=== PATIENT | female | born 1950 | race Caucasian/White ===

== ENCOUNTER → 2023-12-24 12:42 | Outpatient (REF) | payer MEDICARE, OTHER, SELFPAY | LOC: PAVMRI 12:42 | PROVIDERS: ATTENDING PHYSICIAN Otolaryngology; FAMILY PHYSICIAN Family Medicine | DX: H90.A22 Sensorineural hearing loss, unilateral, left ear, with restricted hearing on the contralateral side (principal) | CPT/HCPCS: 70553; A9575 ==

== ENCOUNTER → 2024-05-22 07:52 | Outpatient (REF) | payer MEDICARE, OTHER, SELFPAY | LOC: HWWDC 07:52 | PROVIDERS: ATTENDING PHYSICIAN Obstetrics & Gynecology; FAMILY PHYSICIAN Nurse Practitioner Family | DX: Z12.31 Encounter for screening mammogram for malignant neoplasm of breast (principal) | CPT/HCPCS: 77063; 77067 ==

== ENCOUNTER 2024-12-16 13:00 | Emergency (ER) | payer MEDICARE, OTHER, SELFPAY ==
[2024-12-16 13:19] VITALS: BP 151/74
--- NOTE | 2024-12-16 15:24 | ED.GENMED ---
History of Present Illness
General
Chief Complaint: Fall
Source: patient
Exam Limitations: none
Time Seen by Provider: 12/16/24 14:48
Nursing documentation reviewed up to this point in time: agreed with
History of Present Illness
History of Present Illness:
74 yo female, no past medical history was sent here by her certified dialysis technician. She is to have cataract surgery on January 26 in the right eye, she fell 7 days ago at her home. She was standing on the curb outside her home looking up 3 stories
talking to a neighbor when she lost her balance and fell injuring the right orbit. Her sunglasses struck the orbit and caused some bruising so prior to her cataract surgery her certified dialysis technician wants her to have a head CT.
Past History
Past History
ED Past Medical History: None
ED Past Surgical History: Other (thyroid, cataract)
Social History
Tobacco: Non-smoker
Personal:
Living: with family
Employment: Employed
Review of Systems
Review of Systems
Allergies reviewed?: Yes
All Other Systems: ROS reviewed and negative except as documented in HPI and ROS
Skin: Reports other (Mild bruising right orbit)
Phy Exam
Physical Exam
Physical Exam:
GENERAL: No acute distress. A&Ox3.
CONSTITUTIONAL: Afebrile.
EYES: clear, conjunctivae normal
ENMT: moist mucus membranes
RESPIRATORY: Regular respirations, nonlabored, lungs clear.
CARDIOVASCULAR: Regular rate and rhythm, no murmurs, no rubs.
MUSCULOSKELETAL: Moves with ease. Well perfused.
SKIN: Warm, dry, pink. Mild ecchymosis right orbit area
PSYCH: Normal mood and affect. Well kept, interactive and appropriate
NEUROLOGIC: Awake, alert and oriented. No focal neurological deficits
Course
Orders/Labs/Results
Orders:
Orders
12/16/24 13:23
CT Head W/o Iv Contrast Urgent
Comment:
Reason For Exam: fall with head strike
Vital Signs
Initial and Last Documented VS:
Initial Vital Signs
Temp Pulse Resp BP Pulse Ox
98.7 F 69 17 151/74 99
12/16/24 13:19 12/16/24 13:19 12/16/24 13:19 12/16/24 13:19 12/16/24 13:19
Last Documented Vital Signs
Temp Pulse Resp BP Pulse Ox
98.7 F 69 17 151/74 99
12/16/24 13:19 12/16/24 13:19 12/16/24 13:19 12/16/24 13:19 12/16/24 15:29
MDM/Problems Addressed
MDM/Problems Addressed:
74 yo female, no past medical history was sent here by her certified dialysis technician. She is to have cataract surgery on January 26 in the right eye, she fell 7 days ago at her home. She was standing on the curb outside her home looking up 3 stories
talking to a neighbor when she lost her balance and fell injuring the right orbit. Her sunglasses struck the orbit and caused some bruising so prior to her cataract surgery her certified dialysis technician wants her to have a head CT.
Normal neuro exam
Head CT normal, copy given to pt.
Good for discharge
*Pulse Oximetry
SaO2: 99
Oxygen Mode of Delivery: Room air
Patient hypoxic: not evaluated
*Critical Care Note
Total Time (30-74mins, 75-104mins- exclusive of procedures): Not Applicable
ED Attending Note
-
Portions of this chart may have been created with voice recognition software.� Occasional wrong word or��sound alike� substitutions may have occurred due to the inherent limitations of voice recognition software.
Discharge Plan
Departure
Patient Disposition: Home (Routine Discharge)
Date of Disposition: 12/16/24
Time of Disposition: 14:57
Patient with high blood pressure during this ER visit?: No
Condition: Good
Discharge Problem:
Head injury, Contusion of right orbit
Instructions: Head Injury in Adults (DC)
Prescriptions:
No Action
No Current Medications
hydrocodone-acetaminophen 5 MG/500 MG tablet
1 tab PO .Q4-6HPRN PRN (Reason: PAIN) Qty: 20 0RF
Referrals:
Meeta Molina MD [Family Provider, Internal Medicine]
Activity Restrictions/Additional Instructions:
As we discussed, your head CT is normal.
Interventions
Interventions:
*Risk Screen - Suicide Last Done: 12/16/24 13:22
*General Assessment Last Done: 12/16/24 13:22
*Neglect/Abuse Screening Last Done: 12/16/24 13:22
*ED COVID-19 Vaccine History Last Done: 12/16/24 13:22
*Nursing Disposition Last Done: 12/16/24 15:19
ED- Neurological Assessment Last Done: 12/16/24 15:18
Discharge Date and Time
Discharge Date/Time: 12/16/24 15:19
Print Language: MALTESE
== END 2024-12-16 15:19 | disposition home or self-care (01) ==
LOC: EMR 13:00
PROVIDERS: EMERGENCY PHYSICIAN Emergency Medicine; FAMILY PHYSICIAN Internal Medicine
DX: S05.11XA Contusion of eyeball and orbital tissues, right eye, initial encounter (principal); W19.XXXA Unspecified fall, initial encounter; Z98.41 Cataract extraction status, right eye
CPT/HCPCS: 99284; 70450

== ENCOUNTER → 2025-03-20 06:46 | Outpatient (REF) | payer MEDICARE, OTHER, SELFPAY | LOC: PAVMRI 06:46 | PROVIDERS: ATTENDING PHYSICIAN Orthopaedic Surgery; FAMILY PHYSICIAN Internal Medicine | DX: M25.551 Pain in right hip (principal); Z96.641 Presence of right artificial hip joint | CPT/HCPCS: 73721 ==

== ENCOUNTER → 2025-04-03 15:11 | Outpatient (REF) | payer MEDICARE, OTHER, SELFPAY | LOC: HWRAD 15:11 | PROVIDERS: ATTENDING PHYSICIAN Internal Medicine | DX: R10.31 Right lower quadrant pain (principal); R22.41 Localized swelling, mass and lump, right lower limb | CPT/HCPCS: 76882 ==